=== PATIENT | female | born 1950 | race Caucasian/White ===

== ENCOUNTER 2020-08-16 06:57 | Outpatient (REF) | payer MEDICARE, SELFPAY | END 2020-08-16 06:58 | disposition home or self-care (01) | LOC: HO.LAB 06:57 | PROVIDERS: Visit Provider Internal Medicine | DX: Z20.828 Contact with and (suspected) exposure to other viral communicable diseases (principal) | CPT/HCPCS: C9803; U0003 ==

== ENCOUNTER 2020-09-05 14:45 | Outpatient (REF) | payer MEDICARE, SELFPAY | END 2020-09-05 14:46 | disposition home or self-care (01) | LOC: HO.LAB 14:45 | PROVIDERS: PCP Internal Medicine; Visit Provider Internal Medicine | DX: Z20.828 Contact with and (suspected) exposure to other viral communicable diseases (principal) | CPT/HCPCS: C9803; U0003 ==

== ENCOUNTER 2021-02-11 07:11 | Outpatient (REF) | payer MEDICARE, SELFPAY ==
[2021-02-11 08:31] LABS: Cholesterol 168 mg/dL; HDL Cholesterol 50 mg/dL; LDL Cholesterol Calculated 83 mg/dl; Triglycerides 178 mg/dL
== END 2021-02-11 07:12 | disposition home or self-care (01) ==
LOC: HO.LAB 07:11
PROVIDERS: PCP Internal Medicine; Visit Provider Internal Medicine
DX: I10 Essential (primary) hypertension (principal)
CPT/HCPCS: 36415; 80061

== ENCOUNTER 2022-02-13 07:36 | Outpatient (REF) | payer MEDICARE, SELFPAY ==
[2022-02-13 07:52] LABS: MANUAL DIFF FLAG NO
[2022-02-13 08:03] LABS: Basophils Absolute Auto 0.1 X10*3/uL (0.0-0.2); Basophils Percent Auto 0.7 % (0-2); Eosinophils Absolute Auto 0.4 X10*3/uL (0.0-0.4); Eosinophils Percent Auto 5.7 % (0-4); Hematocrit 38.3 % (37.0-47.0); Hemoglobin 12.5 g/dl (12.0-16.0); Imm Gran Abs Auto 0.04 X10*3/uL (0.00-0.03); Imm Gran Pct Auto 0.6 % (0.0-0.4); Lymphocytes Absolute Auto 1.3 X10*3/uL (1.2-4.9); Lymphocytes Percent Auto 19.1 % (20-40); Mean Corpuscular HGB Conc 32.6 g/dl (31.0-35.0); Mean Corpuscular Hemoglobin 29.3 pg (27.0-33.0); Mean Corpuscular Volume 89.9 fL (80.0-98.0); Mean Platelet Volume 9.8 fL (9.4-12.3); Monocytes Absolute Auto 0.7 X10*3/uL (0.1-1.2); Monocytes Percent Auto 9.3 % (2-11); Neutrophils Absolute Auto 4.5 x10*3/uL (2.0-8.3); Neutrophils Percent Auto 64.6 % (45-73); Platelet Count 229 X10*3/uL (160-400); Red Blood Count 4.26 X10*6/uL (4.20-5.50); Red Cell Distribution Width 12.4 % (11.0-16.0)
[2022-02-13 08:24] LABS: Alanine Aminotransferase 39 U/L (0-31); Albumin Level 3.9 g/dL (3.5-5.0); Alkaline Phosphatase 72 U/L (39-117); Anion Gap 10 (12-20); Aspartate Amino Transferase 29 U/L (5-31); Bilirubin Total 0.4 mg/dL (0.0-1.0); Blood Urea Nitrogen 16 mg/dL (9-16); Calcium 9.5 mg/dL (8.4-10.2); Carbon Dioxide 28 mmol/L (22-29); Chloride 106 mmol/L (96-108); Cholesterol 194 mg/dL; Estimated Glomerular Filt Rate > 60; Glucose Fasting 165 mg/dL (60-99); HDL Cholesterol 48 mg/dL; LDL Cholesterol Calculated 104 mg/dl; Potassium 4.4 mmol/L (3.3-5.1); Sodium 140 mmol/L (135-145); Total Protein 7.3 g/dL (6.5-8.0); Triglycerides 213 mg/dL
== END 2022-02-13 07:37 | disposition home or self-care (01) ==
LOC: HO.LAB 07:36
PROVIDERS: PCP Internal Medicine; Visit Provider Internal Medicine
DX: Z00.00 Encounter for general adult medical examination without abnormal findings (principal); E11.9 Type 2 diabetes mellitus without complications; E03.9 Hypothyroidism, unspecified
CPT/HCPCS: 36415; 80053; 80061; 84443; 85025

== ENCOUNTER 2023-02-11 09:22 | Outpatient (REF) | payer MEDICARE, SELFPAY ==
[2023-02-11 10:23] LABS: Estimated Average Glucose 163 mg/dL; Hemoglobin A1c % 7.3 %
[2023-02-11 10:56] LABS: Glucose Fasting 147 mg/dL (60-99)
== END 2023-02-11 09:23 | disposition home or self-care (01) ==
LOC: HO.LAB 09:22
PROVIDERS: PCP Internal Medicine; Visit Provider Internal Medicine
DX: E11.65 Type 2 diabetes mellitus with hyperglycemia (principal)
CPT/HCPCS: 36415; 82947; 83036

== ENCOUNTER 2024-08-11 07:10 | Outpatient (REF) | payer MEDICARE, SELFPAY ==
[2024-08-11 07:23] LABS: MANUAL DIFF FLAG NO
[2024-08-11 07:41] LABS: Basophils Absolute Auto 0.1 X10*3/uL (0.0-0.2); Eosinophils Absolute Auto 0.4 X10*3/uL (0.0-0.4); Eosinophils Percent Auto 4.9 % (0-4); Hematocrit 39.4 % (37.0-47.0); Imm Gran Abs Auto 0.03 X10*3/uL (0.00-0.03); Imm Gran Pct Auto 0.4 % (0.0-0.4); Lymphocytes Absolute Auto 1.7 X10*3/uL (1.2-4.9); Lymphocytes Percent Auto 24.3 % (20-40); Mean Corpuscular Hemoglobin 29.4 pg (27.0-33.0); Mean Corpuscular Volume 89.1 fL (80.0-98.0); Monocytes Absolute Auto 0.7 X10*3/uL (0.1-1.2); Monocytes Percent Auto 9.2 % (2-11); Neutrophils Absolute Auto 4.3 x10*3/uL (2.0-8.3); Neutrophils Percent Auto 60.2 % (45-73); Platelet Count 246 X10*3/uL (160-400); Red Blood Count 4.42 X10*6/uL (4.20-5.50); White Blood Count 7.2 X10*3/uL (4.8-10.8)
[2024-08-11 08:13] LABS: Alanine Aminotransferase 34 U/L (0-31); Alkaline Phosphatase 77 U/L (39-117); Anion Gap 10 (12-20); Aspartate Amino Transferase 27 U/L (5-31); Bilirubin Total 0.4 mg/dL (0.0-1.0); Blood Urea Nitrogen 15 mg/dL (9-16); Calcium 9.1 mg/dL (8.4-10.2); Carbon Dioxide 28 mmol/L (22-29); Chloride 106 mmol/L (96-108); Cholesterol 175 mg/dL (<200); Estimated Glomerular Filt Rate > 60; Glucose Fasting 154 mg/dL (60-99); HDL Cholesterol 51 mg/dL (>40); LDL Cholesterol Calculated 96 mg/dL (<100); Potassium 4.3 mmol/L (3.3-5.1); Sodium 140 mmol/L (135-145); Total Protein 7.5 g/dL (6.5-8.0); Triglycerides 144 mg/dL (<150)
[2024-08-11 08:32] LABS: Thyroid Stimulating Hormone 2.34 uIU/mL (0.32-4.0)
== END 2024-08-11 07:11 | disposition home or self-care (01) ==
LOC: HO.LAB 07:10
PROVIDERS: PCP Internal Medicine; Visit Provider Internal Medicine
DX: Z13.0 Encounter for screening for diseases of the blood and blood-forming organs and certain disorders involving the immune mechanism (principal); Z13.9 Encounter for screening, unspecified; Z13.29 Encounter for screening for other suspected endocrine disorder; Z13.220 Encounter for screening for lipoid disorders
CPT/HCPCS: 36415; 80053; 80061; 84443; 85025

== ENCOUNTER 2024-08-18 09:54 | Outpatient (AMB) | payer MEDICARE, SELFPAY ==
--- NOTE | 2024-08-18 09:57 | A.OFFPC_ITS ---
Vital Signs 08/18/24 09:59 Height 5 ft 3 in Weight 171 lb BMI 30.3 BP 162/90 H Blood Pressure Location Lt brachial Position Sitting Pulse 83 Pulse Source Pulse Oximeter Pulse Oximetry (%) 95 Oxygen Delivery Method Room Air Intake Visit Reasons: annual exam Intake Note: Patient is here today for a physical. Building Services Coordinator Required: No Knotting Machine Operator: Not Required per policy Accompanied by: Self / Same As Patient Allergies No Known Allergies [No Known Allergies*] Allergy (Verified 08/18/24 09:58) Tobacco use date assessed: 08/18/24 Fall risk assessment: No Falls in past year Last assessed Fall Risk: 08/18/24 Dental Screening Dental Screen Date: 08/18/24 Did you have a dental visit in the last 12 months?: No Did you have a dental problem in the last 6 months where you did not have access to dental care?: No HPI annual exam HPI Details hyperlipidemia and HTN on rx; has DM but refuses rx PFSH Medical History (Updated 08/18/24 @ 14:08 by Jimmie Delong MD) Hypertension Surgical History History of hysterectomy History of appendectomy History of cholecystectomy Family History Father No problems noted. Mother No problems noted. Social History Housing: House Alcohol intake: current Alcohol intake frequency: holidays/special occasions only Patient Tobacco Use Status: Never used Tobacco e-Cigarette/Vaping Use: Never Used Second Hand Smoke Exposure: No service: No Current occupational status: retired Cognitive needs: No Hearing needs: No Vision needs: No Questionnaire PHQ-9 Over the last 2 weeks, how often have you been bothered by any of the following problems? 1. Little interest or pleasure in doing things: not at all 2. Feeling down, depressed, or hopeless: not at all 3. Trouble falling or staying asleep, or sleeping too much: not at all 4. Feeling tired or having little energy: not at all 5. Poor appetite or overeating: not at all 6. Feeling bad about yourself - or that you are a failure or have let yourself or your family down: not at all 7. Trouble concentrating on things, such as reading the newspaper or watching television: not at all 8. Moving or speaking so slowly that other people could have noticed. Or the opposite - being so fidgety or restless that you have been moving around a lot more than usual: not at all 9. Thoughts that you would be better off or of hurting yourself in some way: not at all Total score: 0 Depression Screening Interpretation: Negative Depression Screening Done: Yes 76589 - PHQ-9 Billing: Yes Source: Developed by Drs. Chris Boo, Patria Higuera, Herson Fields and colleagues, with an educational princess from [employer]. Thrive Questionnaire Date Thrive assessed: 08/18/24 I am a: Patient What is your living situation today?: I have a steady place to live Within the past 12 months, did the food you bought not last and you didn't have the money to get more?: Never true Within the past 12 months, did you worry whether your food would run out before you got money to buy more?: Never true Do you have trouble paying for medicines?: No Do you have trouble getting transportation to medical appointments?: No Do you have trouble paying your heating and electricity bill?: No Do you have trouble taking care of your child, family member or friend?: No Do you have trouble with day-to-day activities such as bathing, preparing meals, shopping, managing finances, etc.?: No Are you currently unemployed and looking for a job?: No Are you interested in more education?: No Please select the resources that you would like help with: None Currently or been in a relationship where the following occur: No concerns reported THRIVE Score: 0 AUDIT C Alcohol Use Questionnaire (AUDIT-C) 1. How often do you have a drink containing alcohol?: Never 3. How often do you have six or more drinks on one occasion?: Never Total Score: 0 TARA-7 AMB Questionnaire TARA-7 Date TARA - 7 assessed: 08/18/24 Feeling nervous, anxious, or on edge: 0 = Not at all Not being able to stop or control worryin = Not at all Worrying too much about different things: 0 = Not at all Trouble relaxin = Not at all Being so restless that it is hard to sit still: 0 = Not at all Becoming easily annoyed or irritable: 0 = Not at all Feeling afraid as if something awful might happen: 0 = Not at all Total TARA-7 score (0-4 normal; 5-9 mild; 10-14 moderate; 15-21 severe): 0 Source: Developed by Drs. Chris Boo, Patria Higuera, Herson Fields and colleagues, with an educational princess from [employer]. TARA-7 Assessment Billing TARA-7 Assessment Tool: TARA-7 Assessment 37685 Review of Systems Const Denies chills, Denies fatigue, Denies headache(s) and Denies weight loss Eyes Denies change in vision, Denies diplopia and Denies eye pain ENT Denies vertigo, Denies dizziness, Denies headache(s) and Denies nasal discharge Card Denies chest pain, Denies rapid heart rate and Denies dyspnea on exertion Resp Denies chest congestion, Denies cough, Denies pain with cough and Denies dyspnea on exertion GI Denies abdominal pain, Denies hematochezia and Denies change in bowel habits Musc Denies myalgias, Denies arthralgias and Denies joint swelling Skin/Breast Denies lesions and Denies unusual bruising Neuro Denies vertigo, Denies dizziness, Denies headache(s) and Denies focal weakness Endo Denies fatigue Physical exam (Primary Care) Vital Signs: Last Vital Signs Pulse 83 08/18/24 09:59 BP 162/90 H 08/18/24 09:59 Pulse Ox 95 08/18/24 09:59 Oxygen Delivery Method Room Air 08/18/24 09:59 BMI result Body Mass Index 30.3 Tobacco/Smoking Status: Tobacco use Status Tobacco use date assessed 08/18/24 08/18/24 09:59 Patient Tobacco Use Status Never used Tobacco 08/18/24 09:59 e-Cigarette/Vaping Use Never Used 08/18/24 09:59 PHQ-9: PHQ-9 Score PHQ-9: Total score 0 08/18/24 10:07 Depression Screening Interpretation: Negative Thrive Assessment: Date of Thrive Assessment Date Thrive assessed 08/18/24 08/18/24 09:59 Currently or been in a relationship where the following occur: No concerns reported Const General: cooperative, healthy appearing and no acute distress Orientation/consciousness: oriented to person, oriented to place and oriented to time HENMT Head: Yes normal to inspection, Yes normocephalic and Yes atraumatic Mouth: Normal oral and palatal mucosa present and tongue normal Throat: Yes posterior oropharynx normal and Yes uvula midline Eyes General: appearance normal, both eyes and all related structures Neck Neck: Yes normal visual inspection, Yes full ROM and Yes no lymphadenopathy Thyroid: Thyroid normal Carotids: normal carotid upstroke Chest Chest palpation & inspection: normal inspection of the chest Resp Effort & Inspection: normal respiratory effort and able to speak in complete sentences Auscultation: clear to auscultation bilaterally Cardio Jugular venous distension: no JVD Palpation: normal PMI Rate: regular rate Rhythm: regular rhythm Heart sounds: S1 normal heart sound present and S2 normal heart sound present GI Inspection: Yes normal to inspection Palpation (GI): Soft to palpation and No hepatosplenomegaly present Auscultation: normal bowel sounds General: Yes no CVA tenderness Back/Spine/Pelvis Back: no CVA tenderness Skin General skin exam: no rashes or lesions noted Neuro General: oriented to person, oriented to place and oriented to time Extrem General: Yes normal to inspection and Yes full ROM Results AMB Hemoglobin A1c AMB Hemoglobin A1c 7.5 % Last Edit by CANDY Maravilla on 08/18/24 10:09 Results Reviewed Results Reviewed: Laboratory Last Values Hgb A1c (Clinic) 7.5 % (4.0-6.0) H 08/18/24 09:57 Coding Level of Care Code Est Pt Prev Care >65y(02670) Diagnoses Physical exam Z00.00 Diabetes mellitus with coincident hypertension E11.9; I10 Hyperlipidemia E78.5 Hypertension I10 Additional Codes TARA-7 Assessment Billing - TARA-7 Assessment Tool: TARA-7 Assessment 28668 ([id number]) PHQ-9 - 96139 - PHQ-9 Billing: Yes ([id number]) Assessment & Plan Assessment & Plan (1) Physical exam: Code(s): Z00.00 - Encounter for general adult medical examination without abnormal findings Category: Medical Plan: stable; (2) Diabetes mellitus with coincident hypertension: Code(s): E11.9 - Type 2 diabetes mellitus without complications; I10 - Essential (primary) hypertension Category: Medical Plan: will improve diet; perhaps she will agree to rx in Sep (3) Hyperlipidemia: Code(s): E78.5 - Hyperlipidemia, unspecified Category: Medical Plan: stable; same rx (4) Hypertension: Code(s): I10 - Essential (primary) hypertension Category: Medical Plan: stable; same rx Orders: Orders AMB Hemoglobin A1c Today E11.9 - Type 2 diabetes mellitus without complications, I10 - Essential (primary) hypertension Glucose Fasting Today R73.9 - Hyperglycemia, unspecified Lipid Panel Today Z13.220 - Encounter for screening for lipoid disorders Hemoglobin A1c Today R73.9 - Hyperglycemia, unspecified
[2024-08-18 09:59] VITALS: BP 162/90; PULSE 83; O2SAT 95; BMI 30.3
== END 2024-08-18 10:17 | disposition home or self-care (01) ==
PROVIDERS: PCP Internal Medicine; Visit Provider Internal Medicine
DX: Z00.00 Encounter for general adult medical examination without abnormal findings (principal); E11.9 Type 2 diabetes mellitus without complications; I10 Essential (primary) hypertension; E78.5 Hyperlipidemia, unspecified

== ENCOUNTER → 2024-08-18 09:54 | Outpatient (BNVA) | payer MEDICARE, SELFPAY | PROVIDERS: PCP Internal Medicine; Visit Provider Internal Medicine | DX: Z00.00 Encounter for general adult medical examination without abnormal findings (principal); E11.9 Type 2 diabetes mellitus without complications; E78.5 Hyperlipidemia, unspecified; I10 Essential (primary) hypertension | CPT/HCPCS: 83036; 96127; 99397 ==

== ENCOUNTER 2024-11-18 08:32 | Outpatient (AMB) | payer MEDICARE, SELFPAY ==
[2024-11-18 08:33] VITALS: BP 180/110; PULSE 86; O2SAT 96; BMI 30.7
--- NOTE | 2024-11-18 08:33 | A.OFFPC_ITS ---
Vital Signs 11/18/24 08:33 11/18/24 08:45 Height 5 ft 3 in Weight 173 lb 2 oz BMI 30.7 BP 180/110 H 200/90 H Blood Pressure Location Rt brachial Lt brachial Position Sitting Sitting Pulse 86 Pulse Source Pulse Oximeter Pulse Oximetry (%) 96 Oxygen Delivery Method Room Air Intake Visit Reasons: Follow Up Developmental Behavioral Physician Required: No Accompanied by: Self / Same As Patient Allergies No Known Allergies [No Known Allergies*] Allergy (Verified 11/18/24 08:34) Medication List - Last Reconciled 11/18/24 by Jimmie Delong MD chlorhexidine gluconate 0.12% 15 mL buccal DAILY lisinopril 20 mg PO DAILY metoprolol tartrate 25 mg PO DAILY 90 days rosuvastatin 20 mg PO DAILY triamcinolone acetonide 0.5% 1 appl topical TID Tobacco use date assessed: 11/18/24 Fall risk assessment: No Falls in past year Last assessed Fall Risk: 11/18/24 Dental Screening Dental Screen Date: 11/18/24 Did you have a dental visit in the last 12 months?: Yes Did you have a dental problem in the last 6 months where you did not have access to dental care?: No Was dental information given to patient?: Patient has dentist HPI Follow Up HPI Details HTN; says she is compliant with meds but uses a lot of salt [facility] Medical History (Updated 08/18/24 @ 14:08 by Jimmie Delong MD) Hypertension Surgical History History of hysterectomy History of appendectomy History of cholecystectomy Family History Father No problems noted. Mother No problems noted. Social History Housing: House Alcohol intake: current Alcohol intake frequency: holidays/special occasions only Patient Tobacco Use Status: Never used Tobacco e-Cigarette/Vaping Use: Never Used Second Hand Smoke Exposure: No service: No Current occupational status: retired Cognitive needs: No Hearing needs: No Vision needs: No Questionnaire PHQ-9 Over the last 2 weeks, how often have you been bothered by any of the following problems? 1. Little interest or pleasure in doing things: not at all 2. Feeling down, depressed, or hopeless: not at all 3. Trouble falling or staying asleep, or sleeping too much: not at all 4. Feeling tired or having little energy: not at all 5. Poor appetite or overeating: not at all 6. Feeling bad about yourself - or that you are a failure or have let yourself or your family down: not at all 7. Trouble concentrating on things, such as reading the newspaper or watching television: not at all 8. Moving or speaking so slowly that other people could have noticed. Or the opposite - being so fidgety or restless that you have been moving around a lot more than usual: not at all 9. Thoughts that you would be better off or of hurting yourself in some way: not at all Total score: 0 Depression Screening Interpretation: Negative Depression Screening Done: Yes 59150 - PHQ-9 Billing: Yes Source: Developed by Drs. Chris Boo, Patria Higuera, Herson Fields and colleagues, with an educational princess from [employer]. Thrive Questionnaire Date Thrive assessed: 11/18/24 I am a: Patient What is your living situation today?: I have a steady place to live Within the past 12 months, did the food you bought not last and you didn't have the money to get more?: Never true Within the past 12 months, did you worry whether your food would run out before you got money to buy more?: Never true Do you have trouble paying for medicines?: No Do you have trouble getting transportation to medical appointments?: No Do you have trouble paying your heating and electricity bill?: No Do you have trouble taking care of your child, family member or friend?: No Do you have trouble with day-to-day activities such as bathing, preparing meals, shopping, managing finances, etc.?: No Are you currently unemployed and looking for a job?: No Are you interested in more education?: No Please select the resources that you would like help with: None Currently or been in a relationship where the following occur: No concerns reported THRIVE Score: 0 AUDIT C Alcohol Use Questionnaire (AUDIT-C) 1. How often do you have a drink containing alcohol?: Never 3. How often do you have six or more drinks on one occasion?: Never Total Score: 0 TARA-7 AMB Questionnaire TARA-7 Date TARA - 7 assessed: 11/18/24 Feeling nervous, anxious, or on edge: 0 = Not at all Not being able to stop or control worryin = Not at all Worrying too much about different things: 0 = Not at all Trouble relaxin = Not at all Being so restless that it is hard to sit still: 0 = Not at all Becoming easily annoyed or irritable: 0 = Not at all Feeling afraid as if something awful might happen: 0 = Not at all Total TARA-7 score (0-4 normal; 5-9 mild; 10-14 moderate; 15-21 severe): 0 Source: Developed by Drs. Chris Boo, Patria Higuera, Herson Fields and colleagues, with an educational princess from [employer]. TARA-7 Assessment Billing TARA-7 Assessment Tool: TARA-7 Assessment 42498 Review of Systems Const Denies chills, Denies headache(s) and Denies weight loss ENT Denies headache(s) Card Denies chest pain, Denies syncope, Denies irregular heart rhythm and Denies dyspnea Resp Denies chest congestion, Denies cough and Denies dyspnea GI Denies abdominal pain, Denies change in stool character, Denies nausea and Denies vomiting Musc Denies deformity and Denies joint swelling Neuro Denies syncope and Denies headache(s) Physical exam (Primary Care) Vital Signs: Last Vital Signs Pulse 86 11/18/24 08:33 BP 200/90 H 11/18/24 08:45 Pulse Ox 96 11/18/24 08:33 Oxygen Delivery Method Room Air 11/18/24 08:33 BMI result Body Mass Index 30.7 Tobacco/Smoking Status: Tobacco use Status Tobacco use date assessed 11/18/24 11/18/24 08:36 Patient Tobacco Use Status Never used Tobacco 11/18/24 08:36 e-Cigarette/Vaping Use Never Used 11/18/24 08:36 PHQ-9: PHQ-9 Score PHQ-9: Total score 0 11/18/24 08:36 Depression Screening Interpretation: Negative Thrive Assessment: Date of Thrive Assessment Date Thrive assessed 11/18/24 11/18/24 08:36 Currently or been in a relationship where the following occur: No concerns reported Const General: cooperative, comfortable, no acute distress and alert Neck Neck: Yes no lymphadenopathy Thyroid: Thyroid normal Resp Effort & Inspection: normal respiratory effort Auscultation: clear to auscultation bilaterally Percussion: percussion normal Cardio Jugular venous distension: no JVD Palpation: normal PMI Rate: regular rate Rhythm: regular rhythm Heart sounds: S1 normal heart sound present and S2 normal heart sound present GI Inspection: Yes normal to inspection Palpation (GI): No hepatosplenomegaly present Skin General skin exam: no rashes or lesions noted Extrem General: Yes no clubbing, cyanosis or edema Coding Level of Care Code Est Pt Level 3 (67269) Diagnoses Hypertension I10 Additional Codes TARA-7 Assessment Billing - TARA-7 Assessment Tool: TARA-7 Assessment 68790 ([id number]) PHQ-9 - 92163 - PHQ-9 Billing: Yes ([id number]) Assessment & Plan Assessment & Plan (1) Hypertension: Code(s): I10 - Essential (primary) hypertension Category: Medical Plan: add HCTZ; f/u 1 week Medications: New hydrochlorothiazide 25 mg PO DAILY 90 tabs 0RF
[2024-11-18 08:45] VITALS: BP 200/90
== END 2024-11-18 08:52 | disposition home or self-care (01) ==
PROVIDERS: PCP Internal Medicine; Visit Provider Internal Medicine
DX: I10 Essential (primary) hypertension (principal)

== ENCOUNTER → 2024-11-18 08:32 | Outpatient (BNVA) | payer MEDICARE, SELFPAY | PROVIDERS: PCP Internal Medicine; Visit Provider Internal Medicine | DX: I10 Essential (primary) hypertension (principal) | CPT/HCPCS: 96127; 99212 ==

== ENCOUNTER 2025-03-08 08:23 | Outpatient (AMB) | payer MEDICARE, SELFPAY ==
--- NOTE | 2025-03-08 08:31 | A.OFFPC_ITS ---
Vital Signs 03/08/25 08:32 03/08/25 09:01 Height 5 ft 3 in Weight 171 lb 4 oz BMI 30.3 BP 130/60 184/92 H Blood Pressure Location Lt brachial Lt brachial Position Sitting Sitting Pulse 62 Pulse Source Pulse Oximeter Temp 97.3 F Temp Source Temporal Artery Scan Pulse Oximetry (%) 96 Oxygen Delivery Method Room Air Intake Visit Reasons: TANIYA DR Delong - see comments Intake Note: Patient is here today for TANIYA from Dr Delong. Commercial Lending Vice President Required: Yes Commercial Lending Vice President Language: Micronesian Commercial Lending Vice President Name: Renu Information Interpreted: non-clinical & clinical Publication Director: Present Accompanied by: Daughter Allergies No Known Allergies [No Known Allergies*] Allergy (Verified 03/08/25 08:47) Medication List - Last Reconciled 03/08/25 by NICOLAS Fang chlorhexidine gluconate 0.12% 15 mL buccal DAILY lisinopril 20 mg PO DAILY metoprolol tartrate 25 mg PO DAILY 90 days triamcinolone acetonide 0.5% 1 appl topical TID Tobacco use date assessed: 03/08/25 Fall risk assessment: No Falls in past year Last assessed Fall Risk: 03/08/25 Dental Screening Dental Screen Date: 11/18/[address] Delong - see comments HPI Details Patient is a 74-year-old female with past medical history of DM 2, HTN,hld. Patient of Dr. Delong, who retired. He is presenting to [facility] care. She has concerns about chronic health conditions, including essential hypertension and type 2 diabetes mellitus. Her history includes episodes of elevated blood pressure, with home and clinic readings indicating values as high as 184/92 mmHg. She denies experiencing symptoms like chest pain or dyspnea related to hypertension. Reports that she did not take her blood pressure medications as yet. Reports that she likes salty foods. The patient's diabetes management reveals a slight improvement in HbA1c, now at 7.3% from 7.5%. The patient continues on metformin therapy, without reporting significant hypoglycemic events. In terms of hyperlipidemia management, the patient is not currently on statin therapy due to adverse effects like muscle aches experienced in the past with rosuvastatin. Past LDL levels were 96 mg/dL, necessitating stricter control given her diabetic status. The patient adheres to lisinopril for managing hypertension, although blood pressure checking routine might be affecting the accuracy of results. PFSH Medical History (Updated 03/08/25 @ 09:04 by NICOLAS Fang) Hyperlipidemia Diabetes mellitus with coincident hypertension Hypertension Surgical History History of hysterectomy History of appendectomy History of cholecystectomy Family History Father No problems noted. Mother No problems noted. Social History Housing: House Alcohol intake: current Alcohol intake frequency: holidays/special occasions only Patient Tobacco Use Status: Never used Tobacco e-Cigarette/Vaping Use: Never Used Second Hand Smoke Exposure: No service: No Current occupational status: retired Cognitive needs: No Hearing needs: No Vision needs: No Questionnaire PHQ-9 Over the last 2 weeks, how often have you been bothered by any of the following problems? 1. Little interest or pleasure in doing things: not at all 2. Feeling down, depressed, or hopeless: not at all 3. Trouble falling or staying asleep, or sleeping too much: not at all 4. Feeling tired or having little energy: not at all 5. Poor appetite or overeating: not at all 6. Feeling bad about yourself - or that you are a failure or have let yourself or your family down: not at all 7. Trouble concentrating on things, such as reading the newspaper or watching television: not at all 8. Moving or speaking so slowly that other people could have noticed. Or the opposite - being so fidgety or restless that you have been moving around a lot more than usual: not at all 9. Thoughts that you would be better off or of hurting yourself in some way: not at all Total score: 0 Depression Screening Interpretation: Negative Depression Screening Done: Yes Source: Developed by Drs. Chris Boo, Patria Higuera, Herson Fields and colleagues, with an educational princess from [employer]. Thrive Questionnaire Date Thrive assessed: 03/01/25 I am a: Patient What is your living situation today?: I have a steady place to live Within the past 12 months, did the food you bought not last and you didn't have the money to get more?: Never true Within the past 12 months, did you worry whether your food would run out before you got money to buy more?: Never true Do you have trouble paying for medicines?: No Do you have trouble getting transportation to medical appointments?: No Do you have trouble paying your heating and electricity bill?: No Do you have trouble taking care of your child, family member or friend?: No Do you have trouble with day-to-day activities such as bathing, preparing meals, shopping, managing finances, etc.?: No Are you currently unemployed and looking for a job?: No Are you interested in more education?: No Please select the resources that you would like help with: None Currently or been in a relationship where the following occur: No concerns reported THRIVE Score: 0 AUDIT C Alcohol Use Questionnaire (AUDIT-C) 1. How often do you have a drink containing alcohol?: Monthly or less 2. How many drinks containing alcohol do you have on a typical day when you are drinking?: 1 or 2 Total Score: 1 TARA-7 AMB Questionnaire TARA-7 Date TARA - 7 assessed: 11/18/24 Feeling nervous, anxious, or on edge: 0 = Not at all Not being able to stop or control worryin = Not at all Worrying too much about different things: 0 = Not at all Trouble relaxin = Not at all Being so restless that it is hard to sit still: 0 = Not at all Becoming easily annoyed or irritable: 0 = Not at all Feeling afraid as if something awful might happen: 0 = Not at all Total TARA-7 score (0-4 normal; 5-9 mild; 10-14 moderate; 15-21 severe): 0 Source: Developed by Drs. Chris Boo, Patria Higuera, Herson Fields and colleagues, with an educational princess from [employer]. Review of Systems Const Denies headache(s) Eyes Denies loss of vision ENT Denies vertigo, Denies dizziness, Denies headache(s) and Denies sore throat Card Denies chest pain, Denies leg edema and Denies lightheadedness Resp Denies cough, Denies hemoptysis and Denies wheezing GI Denies abdominal pain, Denies melena, Denies constipation, Denies diarrhea and Denies vomiting Denies urinary frequency, Denies dysuria and Denies urinary urgency Musc Denies arthralgias, Denies joint swelling, Denies numbness and Denies tingling Neuro Denies Abnormal speech present, Denies behavioral changes, Denies vertigo, Denies dizziness, Denies headache(s), Denies loss of vision, Denies memory loss, Denies numbness and Denies tingling Psych Denies anxiety, Denies behavioral changes, Denies depression, Denies memory loss and Denies panic attacks Christoph/Lymph Denies easy bleeding and Denies easy bruising Aller/Immun Denies wheezing Physical exam (Primary Care) Vital Signs: Last Vital Signs Temp 97.3 F 03/08/25 08:32 Pulse 62 03/08/25 08:32 BP 130/60 03/08/25 08:32 Pulse Ox 96 03/08/25 08:32 Oxygen Delivery Method Room Air 03/08/25 08:32 BMI result Body Mass Index 30.3 Tobacco/Smoking Status: Tobacco use Status Tobacco use date assessed 03/08/25 03/08/25 08:40 Patient Tobacco Use Status Never used Tobacco 03/08/25 08:40 e-Cigarette/Vaping Use Never Used 03/08/25 08:40 PHQ-9: PHQ-9 Score PHQ-9: Total score 0 03/08/25 08:40 Depression Screening Interpretation: Negative Thrive Assessment: Date of Thrive Assessment Date Thrive assessed 03/01/25 03/08/25 08:40 Currently or been in a relationship where the following occur: No concerns reported Const General: healthy appearing, no acute distress, alert and awake Nutritional Appearance: well nourished Orientation/consciousness: oriented to person, oriented to place and oriented to time HENMT Ears: TM's normal bilaterally General nose exam: Normal nasal mucous membranes and turbinates present Eyes Conjunctivae: conjunctivae normal Sclerae: sclerae normal Pupils: Equal, round and reactive pupils present Neck Neck: Yes no lymphadenopathy and Yes no JVD Thyroid: Thyroid normal Carotids: no bruits Resp Effort & Inspection: normal respiratory effort and not tachypneic Auscultation: no crackles, no rales, no rhonchi and no wheezes Cardio Rate: regular rate Rhythm: regular rhythm Heart sounds: no murmurs and normal S1 and S2 GI Palpation (GI): Soft to palpation, nontender, no hepatomegaly and no splenomegaly Auscultation: normal bowel sounds Skin General skin exam: no rashes or lesions noted and dry skin Neuro General: oriented to person, oriented to place and oriented to time Cranial nerves: Yes Equal, round and reactive pupils present Speech: No Abnormal speech present Gait exam (Neuro): Normal gait present Motor exam (neuro): no tremor noted Extrem Right upper extremity: full ROM Left upper extremity: full ROM Right lower extremity: full ROM; no edema Left lower extremity: full ROM; no edema Psych Mental Status: mental status grossly normal Speech and movement: Normal speech and movement present Affect: normal affect Attitude: cooperative Thought process: Normal thought process present Results AMB Hemoglobin A1c AMB Hemoglobin A1c 7.3 % Last Edit by CANDY Park on 03/08/25 08:44 Results Reviewed Results Reviewed: Laboratory Last Values Hgb A1c (Clinic) 7.3 % (4.0-6.0) H 03/08/25 08:31 Coding Level of Care Code Est Pt Level 4 (32825) Diagnoses Diabetes mellitus with coincident hypertension E11.9; I10 Pure hypercholesterolemia E78.00 Hyperlipidemia type: pure hypercholesterolemia Hypertension, unspecified type I10 Hypertension type: unspecified Time Spent (min) 37 Assessment & Plan Assessment & Plan (1) Diabetes mellitus with coincident hypertension: Code(s): E11.9 - Type 2 diabetes mellitus without complications; I10 - Essential (pr imary) hypertension Category: Medical Plan: A1c 7.3% decrease slightly from previous 7.5%-goal less than 7% Reinforced low sugar/carbohydrate diet and activity as tolerated Patient currently she is not on any medical treatments Re-evaluate on her next visit (2) Hyperlipidemia: Code(s): E78.5 - Hyperlipidemia, unspecified Category: Medical Qualifiers: Hyperlipidemia type: pure hypercholesterolemia Qualified Code(s): E78.00 - Pure hypercholesterolemia, unspecified Plan: Last LDL was in July of 2024, 96-goal is less than 70% for diabetics Patient stopped taking rosuvastatin 20 mg due to muscle aches We will recheck lipid panel to further evaluate (3) Hypertension: Code(s): I10 - Essential (primary) hypertension Category: Medical Qualifiers: Hypertension type: unspecified Qualified Code(s): I10 - Essential (primary) hypertension Plan: Blood pressure elevated in office at 184/92-her goal is systolic less than 130 mmHg Patient denied take her blood pressure medication this morning as it Continue lisinopril 20 mg, metoprolol 25 mg daily Patient has a blood pressure machine at home-encouraged to take her blood pressure 2 hours after taking her medication. If blood pressure continues to be elevated please contact the office. Encouraged the patient to take blood pressure medications before next appointment Orders: Orders Complete Blood Count Auto Diff 3 Months E11.9 - Type 2 diabetes mellitus without complications, E78.5 - Hyperlipidemia, unspecified, I10 - Essential (primary) hypertension Comprehensive Zimmerman. Panel Fast 3 Months E11.9 - Type 2 diabetes mellitus without complications, E78.5 - Hyperlipidemia, unspecified, I10 - Essential (primary) hypertension UA CC w/rflx Micro + Cult 3 Months E11.9 - Type 2 diabetes mellitus without complications, E78.5 - Hyperlipidemia, unspecified, I10 - Essential (primary) hypertension Vitamin D 25-OH Total 3 Months E11.9 - Type 2 diabetes mellitus without complications, E78.5 - Hyperlipidemia, unspecified, I10 - Essential (primary) hypertension Microalbumin, Random (w Creat) 3 Months E11.9 - Type 2 diabetes mellitus without complications, E78.5 - Hyperlipidemia, unspecified, I10 - Essential (primary) hypertension Hemoglobin A1c 3 Months E11.9 - Type 2 diabetes mellitus without complications, E78.5 - Hyperlipidemia, unspecified, I10 - Essential (primary) hypertension AMB Hemoglobin A1c Today E11.9 - Type 2 diabetes mellitus without complications, I10 - Essential (primary) hypertension TSH reflex Free T4 3 Months E11.9 - Type 2 diabetes mellitus without complications, E78.5 - Hyperlipidemia, unspecified, I10 - Essential (primary) hypertension Medications: Refilled metoprolol tartrate 25 mg PO DAILY 90 days 90 tabs 2RF triamcinolone acetonide 0.5% 1 appl topical TID 15 grams 3RF lisinopril 20 mg PO DAILY 90 tabs 2RF
[2025-03-08 08:32] VITALS: BP 130/60; PULSE 62; TEMP 36.3; O2SAT 96; BMI 30.3
[2025-03-08 09:01] VITALS: BP 184/92
== END 2025-03-08 09:01 | disposition home or self-care (01) ==
LOC: HO.HMCH 08:24
DX: E11.9 Type 2 diabetes mellitus without complications (principal); I10 Essential (primary) hypertension; E78.00 Pure hypercholesterolemia, unspecified

== ENCOUNTER → 2025-03-08 08:23 | Outpatient (BNVA) | payer MEDICARE, SELFPAY | DX: E11.9 Type 2 diabetes mellitus without complications (principal); E78.00 Pure hypercholesterolemia, unspecified; I10 Essential (primary) hypertension | CPT/HCPCS: 83036; 99212 ==

== ENCOUNTER 2025-05-26 10:54 | Emergency (ER) | payer MEDICARE, SELFPAY ==
[2025-05-26] VITALS (7 sets, daily range): BP systolic 144–257; BP diastolic 60–119; PULSE 54–82; RESP 16–18; TEMP 36.8; O2SAT 95–100; BMI 25.7
--- NOTE | 2025-05-26 | ECG_ITS ---
Test Reason : chest pain Blood Pressure : */* mmHG Vent. Rate : 70 BPM Atrial Rate : 70 BPM P-R Int : 170 ms QRS Dur : 96 ms QT Int : 396 ms P-R-T Axes : 32 5 116 degrees QTcB Int : 427 ms Normal sinus rhythm Left ventricular hypertrophy with repolarization abnormality ( R in aVL , Sokolow-Duran , Ez product , Romhilt-Kerr ) Abnormal ECG When compared with ECG of 10-Mar-2020 19:50, No significant change was found Referred By: Generic ED Physician Electronically Signed By: Maurizio Iyer
--- NOTE | ~2025-05-26 | CT_ITS ---
EXAMINATION: CT HEAD WITHOUT CONTRAST CLINICAL INFORMATION: Hypertensive, seeing black spots COMPARISON: 03/07/2019. MRI brain 03/08/2019. TECHNIQUE: Contiguous axial imaging was performed from the skull base to vertex without intravenous administration of contrast. This CT examination was performed using dose optimization techniques as appropriate, variously including the following: *Automated exposure control *Adjustment of mA and/or kV according to patient size (this includes techniques or standardized protocols for targeted exams where dose is matched to indication/reason for exam; i.e. extremities or head) *Use of iterative reconstruction technique FINDINGS: There is no evidence of intracranial hemorrhage or extra-axial fluid collection. There is no mass effect, or edema. No CT evidence of acute territorial infarct. Ventricles, sulci, and cisterns are normal in size and configuration for patient age. No hydrocephalus. No midline shift. Negative hyperdense MCA sign. Negative insular ribbon sign. Patchy periventricular and deep white matter hypoattenuation is consistent with mild to moderate small vessel ischemic changes. 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 Normal pituitary. Mild atheromatous calcification of the bilateral carotid siphons and V4 segments vertebral arteries bilaterally. Globes and orbital contents image normally. No extracranial soft tissue abnormalities. Mucous retention cyst right maxillary antrum. The paranasal sinuses, mastoid air cells, and tympanic cavities are otherwise normally aerated. Cerumen impaction in both EACs. No suspicious bony abnormalities. There are no acute fractures evident. CT/CT head/brain wo IV con IMPRESSION: No acute intracranial abnormality. Chronic findings as discussed. Electronically signed by: Ralph Henry MD 05/26/2025 12:20 PM EDT
--- NOTE | 2025-05-26 11:14 | ED.CHESTPAIN ---
HPI - Chest Pain General Chief Complaint: Chest Pain Stated Complaint: CP, passing out Time Seen by Provider: 05/26/25 12:16 Source: patient Mode of arrival: ambulatory Limitations: no limitations History of Present Illness ED Provider: [facility] narrative: This is a 74-year-old woman with a history of hypertension takes lisinopril metoprolol, has been compliant with the medications, presenting with headache, vertigo, and noted to have significantly elevated blood pressure. Chest pain is nonspecific mostly she is reporting a headache and seeing some black spots in front of her eyes, no weakness in upper or lower extremities. Symptoms started this morning. Related Data Previous Rx's ?Medication ?Instructions ?Recorded chlorhexidine gluconate 0.12 % 15 ml buccal DAILY #118 mL 08/28/24 mouthwash lisinopril 20 mg tablet 20 mg PO DAILY #90 tabs 03/08/25 triamcinolone acetonide 0.5 % 1 appl topical TID #15 grams 03/08/25 topical cream hydrochlorothiazide 12.5 mg capsule 12.5 mg PO BID 60 days #120 caps 05/26/25 metoprolol succinate 25 mg 25 mg PO BID 60 days #120 tabs 05/26/25 tablet,extended release 24 hr Allergies Allergy/AdvReac Type Severity Reaction Status Date / Time No Known Allergies (No Known Allergy Verified 05/26/25 11:12 Allergies*) Review of Systems Constitutional: Constitutional: Reports as per [facility] Past Medical History Medical History (Updated 05/26/25 @ 15:21 by Joshua River DO) Hyperlipidemia Diabetes mellitus with coincident hypertension Hypertension Surgical History History of hysterectomy History of appendectomy History of cholecystectomy Family History Family History Father No problems noted. Mother No problems noted. Social History Social History Housing: House Alcohol intake: never Patient Tobacco Use Status: Never used Tobacco Smoked in Last 30 Days: No e-Cigarette/Vaping Use: Never Used Second Hand Smoke Exposure: No Use of substances other than those prescribed or required for medical reasons: No Advance Directives: No Advance Directives Information Provided: Yes Do you have a plan to hurt others: No Plan service: No Current occupational status: retired Cognitive needs: No Hearing needs: No Vision needs: No Physical Exam Vital Signs: Vital Signs: Last Vital Signs Temp 98.3 F 05/26/25 11:09 Pulse 54 05/26/25 15:01 Resp 18 05/26/25 15:01 BP 144/60 H 05/26/25 15:01 Pulse Ox 100 05/26/25 14:01 O2 Del Method Room Air 05/26/25 14:01 BMI result Body Mass Index 25.7 Const: Other: Gen: ?Overall well-appearing patient, but in some discomfort HEENT: PERRLA, EOMI, MMM, no tenderness along temporal arteries Neck: Supple, no LAD CV: RRR, no obvious murmurs appreciated Resp: ?No wheezing rales rhonchi no stridor moving air well Abd: ?Bowel sounds are present, no tenderness no rebound no rigidity MSK: FROM, strength 5/5 all extremities Skin: Warm, dry, intact, Neuro: ?Alert and oriented x3, moving upper and lower extremities symmetrically, no obvious facial asymmetry noted, left-sided horizontal nystagmus without vertical or rotary component, no dysmetria upper or lower extremities Course Course Course Narrative: This is a Rapid Medical Examination (RME) performed by Danica Hernandez PA-C in triage. Full HPI, ROS, assessment and treatment plan per primary provider in the Main ED. Hx: 74 yo F hx HTN here for eval of elevated BPs with headache, seeing black spots and chest pain starting this morning. PE/vitals: hypertensive to 257/119. perrla. equal strength throughout. Plan: labs, ekg, ct head Medications Administered Discontinued Medications Generic Name Dose Route Start Last Admin Trade Name Freq PRN Reason Stop Dose Admin Clonidine HCl 0.1 mg 05/26/25 12:22 05/26/25 12:49 Clonidine Hcl 0.1 Mg Tablet PO 05/26/25 12:23 0.1 mg ONCE ONE Administration Protocol Diazepam 2.5 mg 05/26/25 12:22 05/26/25 12:50 Diazepam 10 Mg/2 Ml Cartridge IVPUSH 05/26/25 12:23 2.5 mg STAT STA Administration Sodium Chloride 1,000 mls @ 999 mls/hr 05/26/25 12:30 05/26/25 14:12 Ns IV 05/26/25 13:30 Infused .Q1H1M CONCEPCION Infusion Labetalol HCl 10 mg 05/26/25 14:00 05/26/25 14:21 Labetalol Hcl 100 Mg/20 Ml Vial IVPUSH 05/26/25 14:01 10 mg ONCE ONE Administration Meclizine HCl 12.5 mg 05/26/25 12:22 05/26/25 12:49 Meclizine Hcl 12.5 Mg Tablet PO 05/26/25 12:23 12.5 mg ONCE ONE Administration Metoprolol Succinate 25 mg 05/26/25 14:03 05/26/25 14:37 Metoprolol Succinate Er 25 Mg Tab.Er.24h PO 05/26/25 14:04 Not Given ONCE ONE Protocol Scopolamine 1.5 mg 05/26/25 12:22 05/26/25 12:50 Scopolamine 1.5 Mg Patch.Td.3 EAR-BEHIND 05/26/25 12:23 1.5 mg ONCE ONE Administration Medical Decision Making Medical Decision Making MDM Narrative: Patient is having a headache and noted to be significantly elevated blood pressure, she also has evidence of vertigo to the left side without any changes or findings to suspect cerebellar cause of her vertigo, she did have a CT obtain as she is having a headache and significant hypotensive to evaluate for hemorrhagic stroke, I would like to address her symptoms before becoming more aggressive with her blood pressure, as her blood pressure may be elevated due to the fact that she is having a headache and that is the most common issue, and she is also vertiginous so start with symptomatic control, we will give clonidine mostly for relaxation as well as its blood pressure affect, we will continue to monitor may need to be admitted for hypotensive urgency or emergency. 14:00 patient re-evaluated, her blood pressure is coming down at bedside she was 204/78 I spoke to patient's son who is at bedside and re-evaluated the patient, the patient's blood pressure is coming down as I mentioned above, headache is improved, still room to move to improve her blood pressure we will give IV labetalol, anticipate adjusting medications on discharge, patient's son states she has not seen a PCP and awhile and has not had a medication adjustment and awhile but she does have a new PCP and they will be able to schedule outpatient workup and follow up, cat scan reassuring Differential Diagnosis Differential Diagnoses: The differential diagnosis associated with the presentation includes (Hypertensive emergency, subarachnoid hemorrhage, ACS, ABRAHAN, temporal arteritis, acute angle closure glaucoma,) Admission/Observation Consideration of admission/observation: Escalation of care including admission/observation considered Lab Data MDM Lab Attestation statement: I reviewed the patient's lab results. 05/26/25 11:09 05/26/25 11:09 Labs: Lab Results 05/26/25 Range/Units 11:09 WBC 7.0 (4.8-10.8) X10*3/uL RBC 4.42 (4.20-5.50) X10*6/uL Hgb 12.8 (12.0-16.0) g/dl Hct 39.4 (37.0-47.0) % MCV 89.1 (80.0-98.0) fL MCH 29.0 (27.0-33.0) pg MCHC 32.5 (31.0-35.0) g/dl RDW 12.5 (11.0-16.0) % Plt Count 246 (160-400) X10*3/uL MPV 9.8 (9.4-12.3) fL Immature Gran % (Auto) 0.4 (0.0-0.4) % Neut % (Auto) 63.2 (45-73) % Lymph % (Auto) 22.5 (20-40) % [place] % (Auto) 9.0 (2-11) % Eos % (Auto) 4.0 (0-4) % Baso % (Auto) 0.9 (0-2) % Lymph # (Auto) 1.6 (1.2-4.9) X10*3/uL [place] # (Auto) 0.6 (0.1-1.2) X10*3/uL Eos # (Auto) 0.3 (0.0-0.4) X10*3/uL Baso # (Auto) 0.1 (0.0-0.2) X10*3/uL Abs Immat Gran (auto) 0.03 (0.00-0.03) X10*3/uL Absolute Neuts (auto) 4.4 (2.0-8.3) x10*3/uL Absolute Nucleated RBC 0.000 (0.0-0.012) X10*3/uL Nucleated RBC % (auto) 0.0 (0.0-0.2) /100WBC ESR 18 (0-20) MM/HR Sodium 139 (135-145) mmol/L Potassium 4.6 (3.3-5.1) mmol/L Chloride 104 (96-108) mmol/L Carbon Dioxide 28 (22-29) mmol/L Anion Gap 12 (12-20) BUN 21 H (9-16) mg/dL Creatinine 0.93 (0.5-1.4) mg/dL Estim Creat Clear Calc 53.1 Estimated GFR 59 Random Glucose 165 H (60-115) mg/dL Calcium 9.1 (8.4-10.2) mg/dL Magnesium 1.8 (1.6-2.6) mg/dL Total Bilirubin 0.3 (0.0-1.0) mg/dL AST 35 H (5-31) U/L ALT 51 H (0-31) U/L Alkaline Phosphatase 79 (39-117) U/L Troponin I High Sens 4.9 (<3.5-17.0) ng/L C-Reactive Protein 0.40 (< or = 0.50) mg/dL Total Protein 7.8 (6.5-8.0) g/dL Albumin 4.4 (3.5-5.0) g/dL Lipase 41 (8-78) U/L Independent Interpretation I performed an independent interpretation of an: EKG (70 beats per minute with changes consistent with LVH not much different than per prior ECGs) and CT Scan (No obvious evidence for subarachnoid hemorrhage) Radiology Impression Discussion of test interpretation with radiology: I have reviewed the radiologist's reading. ( CT/CT head/brain wo IV con IMPRESSION: No acute intracranial abnormality. Chronic findings as discussed.) Prescription Management I considered prescription management with: Pain Medication Chronic Conditions Patient?s care impacted by: Hypertension Critical Care Time Critical Care Time Critical Care Time: Yes Total Critical Care Time: 45 Attestation: Time is exclusive of separately billable procedures. Time includes: direct patient care, patient reassessment, coordination of patient care, interpretation of data (laboratory data, pulse oximetry, arterial blood gases and chest xrays), review of patient's medical records, medical consultation and documentation of patient care. Procedures excluded from critical care time: central intravenous line placement and electrocardiography. Discharge Plan Discharge Clinical Impression: Hypertension, Chest pain, Headache Additional Instructions: I am switching her over from metoprolol that is fast acting to metoprolol that is longer acting 25 mg extended release twice a day, continue with lisinopril I am also adding hydrochlorothiazide 12.5 mg daily, keep monitoring your blood pressure you came in with very elevated blood pressure 257/119, your blood pressure on discharge has been much improved, you have had EKG, cardiac enzymes x2, CT of the brain all of which has been reassuring As far as visual spots you may need to follow up with Ophthalmology to make sure you are not at risk for retinal detachment though does not appear that you have any visual changes at this time. It is very important for you to follow up with the PCP, your blood pressure we will need to be monitored and you medications may need to be adjusted, if you feel like your blood pressure is too low it is making you to dizzy or lightheaded and for example your blood pressure is under systolic 120 then you can discontinue hydrochlorothiazide and just keep on lisinopril and metoprolol Prescriptions: New metoprolol succinate 25 mg tablet extended release 24 hr 25 mg PO BID 60 Days Qty: 120 0RF hydrochlorothiazide 12.5 mg capsule 12.5 mg PO BID 60 Days Qty: 120 0RF Discontinued metoprolol tartrate 25 mg tablet 25 mg PO DAILY 90 Days Qty: 90 2RF No Action chlorhexidine gluconate 0.12 % mouthwash 15 ml buccal DAILY Qty: 118 3RF triamcinolone acetonide 0.5 % cream 1 appl topical TID Qty: 15 3RF lisinopril 20 mg tablet 20 mg PO DAILY Qty: 90 2RF Print Language: Tamazight
[2025-05-26 11:15] LABS: MANUAL DIFF FLAG NO
[2025-05-26 11:17] LABS: Hematocrit 39.4 % (37.0-47.0); Hemoglobin 12.8 g/dl (12.0-16.0); Imm Gran Abs Auto 0.03 X10*3/uL (0.00-0.03); Imm Gran Pct Auto 0.4 % (0.0-0.4); Lymphocytes Absolute Auto 1.6 X10*3/uL (1.2-4.9); Mean Corpuscular HGB Conc 32.5 g/dl (31.0-35.0); Mean Corpuscular Hemoglobin 29.0 pg (27.0-33.0); Mean Corpuscular Volume 89.1 fL (80.0-98.0); NRBC Abs Auto 0.000 X10*3/uL (0.0-0.012); NRBC Pct Auto 0.0 /100WBC (0.0-0.2); Platelet Count 246 X10*3/uL (160-400); Red Blood Count 4.42 X10*6/uL (4.20-5.50); White Blood Count 7.0 X10*3/uL (4.8-10.8)
[2025-05-26 11:36] LABS: Alanine Aminotransferase 51 U/L (0-31); Albumin Level 4.4 g/dL (3.5-5.0); Alkaline Phosphatase 79 U/L (39-117); Anion Gap 12 (12-20); Aspartate Amino Transferase 35 U/L (5-31); Blood Urea Nitrogen 21 mg/dL (9-16); Calcium 9.1 mg/dL (8.4-10.2); Carbon Dioxide 28 mmol/L (22-29); Chloride 104 mmol/L (96-108); Creatinine Clr Calc Pharmacy 53.1; Estimated Glomerular Filt Rate 59; Lipase 41 U/L (8-78); Magnesium 1.8 mg/dL (1.6-2.6); Potassium 4.6 mmol/L (3.3-5.1); Sodium 139 mmol/L (135-145); Total Protein 7.8 g/dL (6.5-8.0)
[2025-05-26 11:44] LABS: Troponin-I High Sensitivity 4.9 ng/L (<3.5-17.0)
[2025-05-26] MEDS: diazePAM 10 MG/2 ML CARTRIDGE 2.5 MG IVPUSH (12:50)
--- NOTE | 2025-05-26 14:29 | PC.NURSE ---
Holding metoprolol for now per MD d/t pt HR 50. Medicated as charted.
[2025-05-26 15:19] LABS: Troponin-I High Sensitivity 16.1 ng/L (<3.5-17.0)
== END 2025-05-26 15:51 | disposition home or self-care (01) ==
PROVIDERS: Physician Assistant Medical; Emergency Provider Emergency Medicine
DX: R07.89 Other chest pain (principal); R51.9 Headache, unspecified; R42 Dizziness and giddiness; I10 Essential (primary) hypertension; R11.0 Nausea; Z79.899 Other long term (current) drug therapy
CPT/HCPCS: 36415; 70450; 80053; 83690; 83735; 84484; 85025; 85652; 86140; 93005; 96361; 96374; 96375; 99284; 99285; J1920; J3360

== ENCOUNTER → 2025-05-26 11:00 | Outpatient (BNV) | payer MEDICARE, SELFPAY | PROVIDERS: Emergency Provider Emergency Medicine; Visit Provider Internal Medicine Cardiovascular Disease | DX: I51.7 Cardiomegaly (principal) | CPT/HCPCS: 93010 ==

== ENCOUNTER → 2025-05-26 11:14 | Outpatient (BNV) | payer MEDICARE, SELFPAY | PROVIDERS: Emergency Provider Emergency Medicine; Visit Provider Radiology Diagnostic Radiology | DX: R51.9 Headache, unspecified (principal); I10 Essential (primary) hypertension | CPT/HCPCS: 70450 ==

== ENCOUNTER 2025-06-08 15:47 | Outpatient (AMB) | payer MEDICARE, SELFPAY ==
[2025-06-08 15:59] VITALS: BP 150/78; PULSE 62; RESP 18; TEMP 36.3; O2SAT 95; BMI 26.8
--- NOTE | 2025-06-08 15:59 | MHC.PC.OV ---
Vital Signs 06/08/25 15:59 Height 5 ft 6 in Weight 166 lb BMI 26.8 BP 150/78 H Blood Pressure Location Lt brachial Position Sitting Respiration 18 Pulse 62 Pulse Source Pulse Oximeter Temp 97.3 F Temp Source Temporal Artery Scan Pulse Oximetry (%) 95 Oxygen Delivery Method Room Air Intake Visit Reasons: htn/dm/hld Spring Former Hand Required: No Accompanied by: Self / Same As Patient Allergies No Known Allergies (No Known Allergies*) Allergy (Verified 06/08/25 16:13) Medication List - Last Reconciled 06/08/25 by NICOLAS Fang chlorhexidine gluconate 0.12% 15 mL buccal DAILY hydrochlorothiazide 12.5 mg PO BID 60 days lisinopril 20 mg PO DAILY metoprolol succinate ER 25 mg PO BID 60 days triamcinolone acetonide 0.5% 1 appl topical TID Tobacco use date assessed: 06/08/25 Fall risk assessment: No Falls in past year Last assessed Fall Risk: 06/08/25 Dental Screening Dental Screen Date: 06/08/25 Did you have a dental visit in the last 12 months?: Yes Did you have a dental problem in the last 6 months where you did not have access to dental care?: No Was dental information given to patient?: Patient has dentist HPI htn/dm/hld HPI Details The patient is a 75-year-old female presenting for follow up visit. She is here with c/o hypertension and associated symptoms of dizziness and lightheadedness. Two weeks prior, she experienced dizziness and lightheadedness, prompting an emergency room visit where her blood pressure was recorded at 200/unknown. The cause of the elevated blood pressure remains unknown, as the emergency room workup was unremarkable. The patient was prescribed hydrochlorothiazide, which she suspects may be causing her dizziness due to potential hypotension. She has been monitoring her blood pressure at home, noting readings around 147 mmHg, and experiences dizziness at these levels. Her fluid intake has improved, which has alleviated some dizziness. The patient is currently on lisinopril 20 mg and metoprolol 25 mg daily. The patient continues to reports high amount of salt intake. She declines any increase in her medications. Preventative care measures include a referral to ophthalmology for an eye examination due to potential hypertensive effects on her vision. She patient declines nephrology referral to help with blood pressure management. [facility] Medical History Hyperlipidemia Diabetes mellitus with coincident hypertension Hypertension Surgical History History of hysterectomy History of appendectomy History of cholecystectomy Family History Father No problems noted. Mother No problems noted. Social History Housing: House Alcohol intake: never Patient Tobacco Use Status: Never used Tobacco e-Cigarette/Vaping Use: Never Used Second Hand Smoke Exposure: No service: No Current occupational status: retired Cognitive needs: No Hearing needs: No Vision needs: No Questionnaire Thrive Questionnaire Date Thrive assessed: 03/01/25 I am a: Patient What is your living situation today?: I have a steady place to live Within the past 12 months, did the food you bought not last and you didn't have the money to get more?: Never true Within the past 12 months, did you worry whether your food would run out before you got money to buy more?: Never true Do you have trouble paying for medicines?: No Do you have trouble getting transportation to medical appointments?: No Do you have trouble paying your heating and electricity bill?: No Do you have trouble taking care of your child, family member or friend?: No Do you have trouble with day-to-day activities such as bathing, preparing meals, shopping, managing finances, etc.?: No Are you currently unemployed and looking for a job?: No Are you interested in more education?: No Please select the resources that you would like help with: None Currently or been in a relationship where the following occur: No concerns reported THRIVE Score: 0 TARA-7 AMB Questionnaire TARA-7 Date TARA - 7 assessed: 11/18/24 Source: Developed by Drs. Chris Boo, Patria Higuera, Herson Fields and colleagues, with an educational princess from [employer] Review of Systems Const Denies headache(s) Eyes Reports change in vision and Denies loss of vision ENT Denies vertigo, Reports dizziness (on and off), Denies headache(s) and Denies sore throat Card Denies chest pain, Denies leg edema and Denies lightheadedness Resp Denies cough, Denies hemoptysis and Denies wheezing GI Denies abdominal pain, Denies melena, Denies constipation, Denies diarrhea and Denies vomiting Denies urinary frequency, Denies dysuria and Denies urinary urgency Musc Denies arthralgias, Denies joint swelling, Denies numbness and Denies tingling Neuro Denies behavioral changes, Denies vertigo, Reports dizziness (on and off), Denies headache(s), Denies loss of vision, Denies memory loss, Denies numbness and Denies tingling Psych Denies anxiety, Denies behavioral changes, Denies depression, Denies memory loss and Denies panic attacks Christoph/Lymph Denies easy bleeding and Denies easy bruising Aller/Immun Denies wheezing Physical exam (Primary Care) Vital Signs: Last Vital Signs Temp 97.3 F 06/08/25 15:59 Pulse 62 06/08/25 15:59 Resp 18 06/08/25 15:59 BP 150/78 H 06/08/25 15:59 Pulse Ox 95 06/08/25 15:59 Oxygen Delivery Method Room Air 06/08/25 15:59 BMI result Body Mass Index 26.8 Tobacco/Smoking Status: Tobacco use Status Tobacco use date assessed 06/08/25 06/08/25 16:03 Patient Tobacco Use Status Never used Tobacco 06/08/25 16:03 e-Cigarette/Vaping Use Never Used 06/08/25 16:03 Thrive Assessment: Date of Thrive Assessment Date Thrive assessed 03/01/25 06/08/25 16:03 Currently or been in a relationship where the following occur: No concerns reported Coding Level of Care Code Est Pt Level 4 (48559) Diagnoses Diabetes mellitus with coincident hypertension E11.9; I10 Pure hypercholesterolemia E78.00 Hyperlipidemia type: pure hypercholesterolemia Hypertension, unspecified type I10 Hypertension type: unspecified Vision changes H53.9 Time Spent (min) 39 Assessment & Plan Assessment & Plan (1) Diabetes mellitus with coincident hypertension: Code(s): E11.9 - Type 2 diabetes mellitus without complications; I10 - Essential (primary) hypertension Category: Medical Plan: A1c 7.3% decrease slightly from previous 7.5%-goal less than 7% Reinforced low sugar/carbohydrate diet and activity as tolerated Patient currently she is not on any medical treatments Re-evaluate on her next visit (2) Hyperlipidemia: Code(s): E78.5 - Hyperlipidemia, unspecified Category: Medical Qualifiers: Hyperlipidemia type: pure hypercholesterolemia Qualified Code(s): E78.00 - Pure hypercholesterolemia, unspecified Plan: Last LDL was in July of 2024, 96-goal is less than 70% for diabetics Patient stopped taking rosuvastatin 20 mg due to muscle aches We will recheck lipid panel to further evaluate (3) Hypertension: Code(s): I10 - Essential (primary) hypertension Category: Medical Qualifiers: Hypertension type: unspecified Qualified Code(s): I10 - Essential (primary) hypertension Plan: The blood pressure was 150/78 goal is systolic less than 140 mmhg. The patient recently ended up in the hospital for hypertensive urgency where her systolic was in the 200s. No acute findings noted. The admitted to be using large amount of salt in her food and reports this it is hard for her to cut back, but she has been increasing her fluid intake. The patient is declining any medication increase today and she is declining the recommended nephrology referral. She is ok with doing an ophthalmology referral. Her current regimen is metoprolol 25 mg ER daily, and reports that she only has been taking the hydrochlorothiazide 25 mg once a day, lisinopril 20 mg daily. Reinforced low-salt diet and adequate hydration. (4) Vision changes: Code(s): H53.9 - Unspecified visual disturbance Category: Medical Plan: Ophthalmology referral placed Orders: Referrals Ophthalmology Referral E11.9 - Type 2 diabetes mellitus without complications, H53.9 - Unspecified visual disturbance, I10 - Essential (primary) hypertension Medications: Changed From hydrochlorothiazide 12.5 mg PO BID 60 days 120 caps 0RF To hydrochlorothiazide 25 mg (2 x 12.5 mg) PO BID 60 days 240 caps 3RF From hydrochlorothiazide 25 mg (2 x 12.5 mg) PO BID 60 days 240 caps 3RF To hydrochlorothiazide 25 mg (2 x 12.5 mg) PO DAILY 120 caps 3RF 60 days From metoprolol succinate ER 25 mg PO BID 60 days 120 tabs 0RF To metoprolol succinate ER 25 mg PO DAILY 60 tabs 3RF 60 days Refilled chlorhexidine gluconate 0.12% 15 mL buccal DAILY 118 mL 3RF
== END 2025-06-08 16:43 | disposition home or self-care (01) ==
LOC: HO.HMCH 15:48
DX: E11.9 Type 2 diabetes mellitus without complications (principal); I10 Essential (primary) hypertension; E78.00 Pure hypercholesterolemia, unspecified; H53.9 Unspecified visual disturbance

== ENCOUNTER → 2025-06-08 15:47 | Outpatient (BNVA) | payer MEDICARE, SELFPAY | DX: I10 Essential (primary) hypertension (principal); E11.9 Type 2 diabetes mellitus without complications; E78.00 Pure hypercholesterolemia, unspecified; Z79.899 Other long term (current) drug therapy | CPT/HCPCS: 99212 ==